=== PATIENT | female | born 1980 | race Caucasian/White ===

== ENCOUNTER 2017-06-06 12:32 | Day surgery (SDC) | payer MEDICARE, MEDICAID ==
[2017-06-06] MEDS ORDERED: Sodium Chloride 0.9% 20 ML ONE (12:43)
[2017-06-06] MEDS ORDERED: Cyclophosphamide 1 GM in Sodium Chloride 0.9% 250 ML 250 ML IVPB SCH ×4 (13:15)
[2017-06-06] MEDS ORDERED: Dexamethasone 10 MG in Sodium Chloride 0.9% 50 ML IVPB SCH (13:15)
[2017-06-06] MEDS ORDERED: Palonosetron HCl 0.25 MG in Sodium Chloride 0.9% 50 ML IVPB SCH (13:15)
[2017-06-06 15:26] VITALS: BP 123/70; TEMP 98.3
== END 2017-06-06 17:07 | disposition home or self-care (01) ==
LOC: ONC/OP 12:32
PROVIDERS: ATTEND Internal Medicine Hematology & Oncology
DX: G70.00 Myasthenia gravis without (acute) exacerbation (principal); D83.9 Common variable immunodeficiency, unspecified; G62.9 Polyneuropathy, unspecified; E66.9 Obesity, unspecified; F32.9 Major depressive disorder, single episode, unspecified; Z68.42 Body mass index [BMI] 45.0-49.9, adult; Z79.899 Other long term (current) drug therapy
CPT/HCPCS: 96367; 96413; A4216; J1100; J1642; J2469; J7050; J9070

== ENCOUNTER 2017-07-18 12:05 | Day surgery (SDC) | payer MEDICARE, MEDICAID ==
[2017-07-18] MEDS ORDERED: Cyclophosphamide 1 GM in Sodium Chloride 0.9% 250 ML 250 ML IVPB SCH (12:30)
[2017-07-18] MEDS ORDERED: Dexamethasone 10 MG in Sodium Chloride 0.9% 50 ML IVPB SCH (12:30)
[2017-07-18] MEDS ORDERED: Palonosetron HCl 0.25 MG in Sodium Chloride 0.9% 50 ML IVPB SCH (12:30)
[2017-07-18] MEDS ORDERED: Sodium Chloride 0.9% 20 ML ONE (12:44)
[2017-07-18 14:13] VITALS: BP 117/56; TEMP 98
[2017-07-18 15:23] LABS: #Eosinphils 0.1 thou/uL (0.0-0.7); #Lymphocytes 1.1 thou/uL (1.20-3.40); #Monocytes 0.4 thou/uL (0.11-0.59); #Neutrophils 6.7 thou/uL (1.40-6.50); %Basophils 0.4 % (0.0-1.0); %Eosinophils 1.1 % (0.0-10.0); %Lymphocytes 13.6 % (21.0-51.0); %Monocytes 4.9 % (0.0-10.0); Hematocrit 37.8 % (36.0-47.0); Mean Platelet Volume 6.8 fL (7.4-10.4); Red Blood Cell (RBC) Count 3.68 mill/uL (4.20-5.40); White Blood Cell (WBC) Count 8.3 thou/uL (4.8-10.8)
[2017-07-18 15:46] LABS: ALT (SGPT) 35 U/L (8-55); AST (SGOT) 23 U/L (5-34); Alkaline Phosphatase 53 U/L (40-150); Anion Gap 12 mmol/L (10-20); BUN (Urea Nitrogen) 22 mg/dL (7.0-18.7); Bilirubin, Total Less than 0.2 mg/dL (0.2-1.2); Calc. Creatinine Clearance 231 mL/min (70-130); Calcium 9.7 mg/dL (7.8-10.44); Carbon Dioxide 30 mmol/L (22-29); Chloride 105 mmol/L (98-107); Estimated GFR-MDRD Greater than 90; Globulin 3.1 g/dL (2.4-3.5); Uric Acid 4.8 mg/dL (2.6-6.0)
== END 2017-07-18 14:55 | disposition home or self-care (01) ==
LOC: ONC/OP 12:05
PROVIDERS: ATTEND Internal Medicine Hematology & Oncology
DX: G70.00 Myasthenia gravis without (acute) exacerbation (principal); G62.9 Polyneuropathy, unspecified; E66.9 Obesity, unspecified; K59.03 Drug induced constipation; T45.1X5A Adverse effect of antineoplastic and immunosuppressive drugs, initial encounter; F32.9 Major depressive disorder, single episode, unspecified; Z68.42 Body mass index [BMI] 45.0-49.9, adult
CPT/HCPCS: 36415; 80053; 84550; 85025; 96367; 96413; A4216; J1100; J1642; J2469; J7050; J9070

== ENCOUNTER 2017-09-02 14:29 | Day surgery (SDC) | payer MEDICARE, MEDICAID ==
[2017-09-02] MEDS ORDERED: Sodium Chloride 0.9% 30 ML ONE (14:38)
[2017-09-02] MEDS ORDERED: Palonosetron HCl 0.25 MG in Sodium Chloride 0.9% 50 ML IVPB SCH (14:45)
[2017-09-02] MEDS ORDERED: Dexamethasone 10 MG in Sodium Chloride 0.9% 50 ML IVPB SCH (14:45)
[2017-09-02] MEDS ORDERED: Cyclophosphamide 1 GM in Sodium Chloride 0.9% 250 ML 250 ML IVPB SCH (14:45)
[2017-09-02 14:57] VITALS: BP 133/63; TEMP 99.1
[2017-09-02 15:01] LABS: #Eosinphils 1.3 thou/uL (0.0-0.7); #Lymphocytes 1.9 thou/uL (1.20-3.40); #Monocytes 0.7 thou/uL (0.11-0.59); #Neutrophils 7.1 thou/uL (1.40-6.50); %Basophils 0.4 % (0.0-1.0); %Lymphocytes 17.2 % (21.0-51.0); %Monocytes 6.2 % (0.0-10.0); %Neutrophils 64.2 % (42.0-75.0); Hemoglobin 14.1 g/dL (12.0-16.0); Mean Corpuscular HGB CONC 33.9 g/dL (32.0-36.0); Mean Corpuscular Hemoglobin 33.8 pg (27.0-31.0); Mean Corpuscular Volume 99.7 fl (81.0-99.0); Mean Platelet Volume 6.8 fL (7.4-10.4); Platelet Count 394 thou/uL (130-400); RBC Distribution Width 12.8 % (11.5-14.5); Red Blood Cell (RBC) Count 4.16 mill/uL (4.20-5.40); White Blood Cell (WBC) Count 11.1 thou/uL (4.8-10.8)
[2017-09-02] MEDS: Activase 2 MG VIAL CATH SCH ×2 (15:15→17:06)
[2017-09-02 15:29] LABS: ALT (SGPT) 80 U/L (8-55); AST (SGOT) 65 U/L (5-34); Albumin 4.4 g/dL (3.5-5.0); Alkaline Phosphatase 63 U/L (40-150); Anion Gap 18 mmol/L (10-20); BUN (Urea Nitrogen) 14 mg/dL (7.0-18.7); Bilirubin, Total 0.4 mg/dL (0.2-1.2); Calc. Creatinine Clearance 228 mL/min (70-130); Calcium 9.4 mg/dL (7.8-10.44); Carbon Dioxide 20 mmol/L (22-29); Chloride 105 mmol/L (98-107); Estimated GFR-MDRD Greater than 90; Globulin 2.8 g/dL (2.4-3.5); Glucose 116 mg/dL (70-105); Protein, Total 7.2 g/dL (6.0-8.3); Sodium 139 mmol/L (136-145)
[2017-09-02] MEDS ORDERED: Sterile Water 10 ML VIAL IVP SCH (15:35)
== END 2017-09-02 18:58 | disposition home or self-care (01) ==
LOC: ONC/OP 14:29
PROVIDERS: ATTEND Internal Medicine Hematology & Oncology
DX: G70.00 Myasthenia gravis without (acute) exacerbation (principal); G62.9 Polyneuropathy, unspecified; E66.9 Obesity, unspecified; Z68.42 Body mass index [BMI] 45.0-49.9, adult
CPT/HCPCS: 80053; 84550; 85025; 96375; 96413; A4216; J1100; J1642; J2469; J2997; J7050; J9070

== ENCOUNTER 2017-09-04 11:34 | Emergency (ER) | payer MEDICARE, MEDICAID ==
[2017-09-04] MEDS ORDERED: Adacel (T-DAP) 0.5 ML VIAL ONE (12:02)
[2017-09-04] MEDS ORDERED: Ondansetron HCl/PF 4 MG/2 ML Vial ONE ×2 (12:02→13:12)
--- NOTE | 2017-09-04 12:12 | RAD ---
SINGLE VIEW CHEST: Date: 09/04/17 COMPARISON: 01/24/12. HISTORY: Syncope on toilet. Patient fell and hit head. FINDINGS: Single view of the chest shows normal sized cardiomediastinal silhouette. The patient is status post sternotomy. The MediPort is unchanged in position. There is no evidence of consolidation, mass, or pl eural effusion. IMPRESSION: No evidence of acute cardiopulmonary disease. POS: [facility]
--- NOTE | 2017-09-04 12:31 | CT ---
CT BRAIN WITHOUT CONTRAST: Comparison: None. History: Syncopal episode on the toilet, falling and hitting head. Loss of consciousness. Technique: Multiple contiguous axial images were obtained in a CT of the brain without contrast. FINDINGS: The brain is normal in morphology and attenuation without focal lesions or confluent areas of infarct ion. There is no evidence of hydrocephalus, intracranial hemorrhage, or extraaxial fluid collection. The calvarium and overlying soft tissues are unremarkable. The visualized paranasal sinuses and masto id air cells are well aerated. IMPRESSION: No evidence of acute intracranial abnormality. POS: [facility]
[2017-09-04 12:41] LABS: CKMB 0.8 ng/mL (0-6.6); Troponin I Less than 0.010 ng/mL (< 0.028)
[2017-09-04 12:42] LABS: ALT (SGPT) 56 U/L (8-55); AST (SGOT) 30 U/L (5-34); Albumin 4.2 g/dL (3.5-5.0); Alkaline Phosphatase 50 U/L (40-150); Anion Gap 19 mmol/L (10-20); BUN (Urea Nitrogen) 17 mg/dL (7.0-18.7); Bilirubin, Total 0.3 mg/dL (0.2-1.2); CK (CPK) 76 U/L (29-168); Calc. Creatinine Clearance 0 mL/min (70-130); Calcium 9.4 mg/dL (7.8-10.44); Carbon Dioxide 21 mmol/L (22-29); Chloride 104 mmol/L (98-107); Estimated GFR-MDRD Greater than 90; Globulin 2.9 g/dL (2.4-3.5); Glucose 94 mg/dL (70-105); Lipase 19 U/L (8-78); Protein, Total 7.1 g/dL (6.0-8.3); Sodium 140 mmol/L (136-145)
[2017-09-04] MEDS ORDERED: Acetaminophen 500 MG TAB ONE (12:55)
[2017-09-04 12:57] LABS: Band 27 % (5-11); Eosinophils 2 % (0-10); Hemoglobin 13.3 g/dL (12.0-16.0); Lymphocytes 23 % (21-51); MDiff Complete? YES; Mean Corpuscular HGB CONC 32.7 g/dL (32.0-36.0); Mean Corpuscular Hemoglobin 31.9 pg (27.0-31.0); Mean Corpuscular Volume 97.4 fl (81.0-99.0); Mean Platelet Volume 6.1 fL (7.4-10.4); Monocytes 8 % (0-10); PLT Morphology Comment Appears Adequate; Platelet Count 383 thou/uL (130-400); RBC Distribution Width 13.3 % (11.5-14.5); Red Blood Cell (RBC) Count 4.17 mill/uL (4.20-5.40); White Blood Cell (WBC) Count 16.7 thou/uL (4.8-10.8)
[2017-09-04 12:59] LABS: Neutrophil 39 % (42-75)
--- NOTE | 2017-09-04 14:28 | CT ---
CT ABDOMEN AND PELVIS WITHOUT IV CONTRAST: INDICATIONS: History of abdominal pain with nausea and vomiting. FINDINGS: The lack of IV contrast limits image detail of the solid organs of the abdomen and pelvis. The exam is compared to a prior, dated 08/28/2012. There is prominent fatty infiltration of the liver. The pancreas and adrenal glands are unremarkable . There is a small splenule seen adjacent to the superior pole of the spleen. The unopacified splee n is unremarkable. No renal or ureteral calculus is noted. A small amount of free fluid is present within the pelvis. There are scattered diverticula present involving the colon without evidence of a ctive diverticulitis. There is very subtle edematous change involving the mesentery of the right low er quadrant of the abdomen. No gino wall thickening is grossly evident. There is a normal appendix in the right lower quadrant. There is a small nodule involving the anterior aspect of the uterine body, measuring 1.6 cm, suspicio us for a subserosal fibroid that has developed in the interim. No definite acute osseous abnormality is evident. There is scattered degenerative and osteoarthritic change. IMPRESSION: 1. Subtle aaron appearance of the mesentery of the right lower quadrant of the abdomen, involving lo ops of small bowel within this location. The findings may reflect sequela of an enteritis. No drain able fluid collection is evident. A small amount of free fluid is present within the pelvis. 2. Fatty liver. 3. No renal or ureteral calculus. 4. Colonic diverticulosis. 5. Fibroid uterus. POS: [facility]
[2017-09-04 15:46] LABS: Amphetamine Detected (NotDetected)
[2017-09-04 15:47] LABS: Barbiturates Screen Not Detected (NotDetected); Benzodiazepine Screen Detected (NotDetected); Cocaine Metabolite Screen Not Detected (NotDetected); Medtox Control Line Valid? VALID (VALID); Methadone Not Detected (NotDetected); Methamphetamine Not Detected (NotDetected); Opiate Screen Not Detected (NotDetected); Oxycodone Screen Not Detected (NotDetected); Phencyclidine (PCP) Not Detected (NotDetected); THC/Cannabinoid Screen Not Detected (NotDetected); Tricyclic Screen Detected (NotDetected)
[2017-09-04 15:48] LABS: Bilirubin Small (Negative); Blood, Urine Negative (Negative); Clarity Cloudy (Clear); Glucose, Urine (Dipstick) Negative (Negative); Leukocyte Negative (Negative); Nitrite Negative (Negative); Protein, Urine (Dipstick) 30 mg/dL (Neg-Trace); Specific Gravity, Urine 1.025 (1.005-1.030); Urobilinogen 0.2 mg/dL (0.2-1.0)
[2017-09-04 15:51] LABS: Pregnancy Test - Urine (BHCG) Negative (Negative); Pregu Control Background? CLEAR/WHITE (CLR/WHITE); Pregu Control Bar Appear? YES (CONTROL BAR); Specific Gravity 1.025 (1.002-1.036)
[2017-09-04 15:53] LABS: RBC/HPF 0-3 HPF (0-3)
[2017-09-04 15:54] LABS: Bacteria/HPF 3+ HPF (None Seen); Hyaline Casts/LPF 0-3 HYALINE CAST LPF (0-3 Hyaline)
== END 2017-09-04 16:05 | disposition home or self-care (01) ==
LOC: SCSER 11:34
DX: S01.01XA Laceration without foreign body of scalp, initial encounter (principal); K52.9 Noninfective gastroenteritis and colitis, unspecified; E78.5 Hyperlipidemia, unspecified; F41.9 Anxiety disorder, unspecified; F32.9 Major depressive disorder, single episode, unspecified; Z79.4 Long term (current) use of insulin; Z79.899 Other long term (current) drug therapy; W22.8XXA Striking against or struck by other objects, initial encounter
CPT/HCPCS: 70450; 71045; 74176; 80053; 80306; 81003; 81015; 81025; 82550; 82553; 83690; 84484; 85025; 90715; 93005; J2405

== ENCOUNTER 2017-09-04 22:45 | Emergency (ER) | payer MEDICARE, MEDICAID ==
[2017-09-04] MEDS ORDERED: Ketorolac Tromethamine 30 MG/ML VIAL ONE (23:09)
== END 2017-09-04 23:20 | disposition home or self-care (01) ==
LOC: SCSER 22:45
DX: S00.03XA Contusion of scalp, initial encounter (principal); E78.5 Hyperlipidemia, unspecified; F41.9 Anxiety disorder, unspecified; F32.9 Major depressive disorder, single episode, unspecified; Z79.84 Long term (current) use of oral hypoglycemic drugs; Z79.899 Other long term (current) drug therapy; W22.8XXA Striking against or struck by other objects, initial encounter
CPT/HCPCS: 12001; 70450; 71045; 74176; 80053; 80306; 81003; 81015; 81025; 82550; 82553; 83690; 84484; 85025; 90471; 90715; 93005; 96361; 96372; 96374; 96376; J1885; J2405

== ENCOUNTER 2017-10-03 11:45 | Day surgery (SDC) | payer MEDICARE, MEDICAID ==
[2017-10-03] MEDS ORDERED: Sodium Chloride 0.9% 20 ML ONE (12:26)
[2017-10-03] MEDS ORDERED: PALONOSETRON HCL 0.05 MG/ML 5 ML VIAL IVP SCH (12:30)
[2017-10-03] MEDS ORDERED: Dexamethasone 4 mg/ml Vial SLOW IVP SCH (12:30)
[2017-10-03] MEDS ORDERED: Cyclophosphamide 1 GM in Sodium Chloride 0.9% 250 ML 250 ML IVPB SCH (13:00)
== END 2017-10-03 14:26 | disposition home or self-care (01) ==
LOC: ONC/OP 11:45
PROVIDERS: ATTEND Internal Medicine Hematology & Oncology
DX: Z51.11 Encounter for antineoplastic chemotherapy (principal); G70.00 Myasthenia gravis without (acute) exacerbation; G62.9 Polyneuropathy, unspecified; F32.9 Major depressive disorder, single episode, unspecified; Z79.899 Other long term (current) drug therapy
CPT/HCPCS: 96375; 96413; A4216; J1100; J1642; J2469; J7050; J9070

== ENCOUNTER 2017-11-17 14:35 | Day surgery (SDC) | payer MEDICARE, MEDICAID ==
[2017-11-17] MEDS ORDERED: PALONOSETRON HCL 0.05 MG/ML 5 ML VIAL IVP SCH (15:00)
[2017-11-17] MEDS ORDERED: Dexamethasone 4 mg/ml Vial SLOW IVP SCH (15:00)
[2017-11-17] MEDS ORDERED: Dexamethasone 10 MG/ML VIAL SLOW IVP SCH (15:15)
[2017-11-17] MEDS ORDERED: Cyclophosphamide 1 GM in Sodium Chloride 0.9% 250 ML 250 ML IVPB SCH (15:15)
[2017-11-17] MEDS ORDERED: Sodium Chloride 0.9% 40 ML ONE (15:32)
== END 2017-11-17 16:54 | disposition home or self-care (01) ==
LOC: ONC/OP 14:35
PROVIDERS: ATTEND Internal Medicine Hematology & Oncology
DX: Z51.11 Encounter for antineoplastic chemotherapy (principal); G70.00 Myasthenia gravis without (acute) exacerbation; G62.9 Polyneuropathy, unspecified; F32.9 Major depressive disorder, single episode, unspecified; E66.9 Obesity, unspecified; Z68.42 Body mass index [BMI] 45.0-49.9, adult; Z79.899 Other long term (current) drug therapy
CPT/HCPCS: 96375; 96413; A4216; J1100; J1642; J2469; J7050; J9070

== ENCOUNTER 2017-12-19 13:43 | Day surgery (SDC) | payer MEDICARE, MEDICAID ==
[2017-12-19] MEDS ORDERED: Cyclophosphamide 1 GM, Admixture Fee 1 EACH in Sodium Chloride 0.9% 250 ML 250 ML IVPB SCH (14:00)
[2017-12-19] MEDS ORDERED: PALONOSETRON HCL 0.05 MG/ML 5 ML VIAL IVP SCH (14:00)
[2017-12-19] MEDS ORDERED: Dexamethasone 10 MG/ML VIAL SLOW IVP SCH (14:00)
[2017-12-19] MEDS ORDERED: Sodium Chloride 0.9% 40 ML ONE (14:03)
[2017-12-19 15:00] VITALS: BP 111/74; TEMP 98.2
[2017-12-19 15:34] LABS: #Basophils 0.1 thou/uL (0.0-0.2); #Eosinphils 0.8 thou/uL (0.0-0.7); #Lymphocytes 1.7 thou/uL (1.20-3.40); #Monocytes 0.5 thou/uL (0.11-0.59); #Neutrophils 6.3 thou/uL (1.40-6.50); %Basophils 0.8 % (0.0-1.0); %Eosinophils 8.8 % (0.0-10.0); %Lymphocytes 18.3 % (21.0-51.0); %Monocytes 4.9 % (0.0-10.0); %Neutrophils 67.1 % (42.0-75.0); Mean Corpuscular HGB CONC 34.7 g/dL (32.0-36.0); Mean Corpuscular Volume 97.9 fl (81.0-99.0); Mean Platelet Volume 6.5 fL (7.4-10.4); Platelet Count 367 thou/uL (130-400); RBC Distribution Width 13.5 % (11.5-14.5); Red Blood Cell (RBC) Count 3.81 mill/uL (4.20-5.40); White Blood Cell (WBC) Count 9.4 thou/uL (4.8-10.8)
[2017-12-19 15:55] LABS: ALT (SGPT) 43 U/L (8-55); AST (SGOT) 29 U/L (5-34); Alkaline Phosphatase 52 U/L (40-150); Anion Gap 13 mmol/L (10-20); BUN (Urea Nitrogen) 14 mg/dL (7.0-18.7); Bilirubin, Total 0.3 mg/dL (0.2-1.2); Calc. Creatinine Clearance 221 mL/min (70-130); Calcium 9.5 mg/dL (7.8-10.44); Carbon Dioxide 25 mmol/L (22-29); Chloride 106 mmol/L (98-107); Estimated GFR-MDRD Greater than 90; Glucose 100 mg/dL (70-105); LDH 194 U/L (125-220); Potassium 3.9 mmol/L (3.5-5.1); Sodium 140 mmol/L (136-145); Uric Acid 5.8 mg/dL (2.6-6.0)
== END 2017-12-19 15:34 | disposition home or self-care (01) ==
LOC: ONC/OP 13:43
PROVIDERS: ATTEND Internal Medicine Hematology & Oncology
DX: G70.00 Myasthenia gravis without (acute) exacerbation (principal); D83.9 Common variable immunodeficiency, unspecified; G62.9 Polyneuropathy, unspecified; F32.9 Major depressive disorder, single episode, unspecified; E66.9 Obesity, unspecified; Z68.42 Body mass index [BMI] 45.0-49.9, adult; Z79.899 Other long term (current) drug therapy
CPT/HCPCS: 80053; 83615; 84550; 85025; 96376; 96413; A4216; J1100; J1642; J2469; J7050; J9070

== ENCOUNTER 2018-01-16 14:22 | Day surgery (SDC) | payer MEDICARE, MEDICAID ==
[2018-01-16] MEDS ORDERED: Sodium Chloride 0.9% 50 ML ONE (14:39)
[2018-01-16 15:15] LABS: #Eosinphils 0.8 thou/uL (0.0-0.7); #Lymphocytes 1.7 thou/uL (1.20-3.40); #Monocytes 0.7 thou/uL (0.11-0.59); #Neutrophils 4.9 thou/uL (1.40-6.50); %Basophils 0.4 % (0.0-1.0); %Eosinophils 9.6 % (0.0-10.0); %Lymphocytes 20.9 % (21.0-51.0); %Monocytes 8.1 % (0.0-10.0); Hemoglobin 12.3 g/dL (12.0-16.0); Mean Corpuscular HGB CONC 34.8 g/dL (32.0-36.0); Mean Corpuscular Hemoglobin 34.2 pg (27.0-31.0); Mean Corpuscular Volume 98.4 fl (81.0-99.0); Mean Platelet Volume 6.4 fL (7.4-10.4); Platelet Count 318 thou/uL (130-400); RBC Distribution Width 13.3 % (11.5-14.5); White Blood Cell (WBC) Count 8.1 thou/uL (4.8-10.8)
[2018-01-16] MEDS ORDERED: PALONOSETRON HCL 0.05 MG/ML 5 ML VIAL IVP SCH (15:30)
[2018-01-16] MEDS ORDERED: Dexamethasone 10 MG/ML VIAL SLOW IVP SCH (15:30)
[2018-01-16] MEDS ORDERED: Cyclophosphamide 1 GM, Admixture Fee 1 EACH in Sodium Chloride 0.9% 250 ML 250 ML IVPB SCH (15:30)
[2018-01-16 15:36] LABS: ALT (SGPT) 36 U/L (8-55); AST (SGOT) 25 U/L (5-34); Albumin 3.7 g/dL (3.5-5.0); Alkaline Phosphatase 58 U/L (40-150); Anion Gap 13 mmol/L (10-20); BUN (Urea Nitrogen) 14 mg/dL (7.0-18.7); Bilirubin, Total Less than 0.2 mg/dL (0.2-1.2); Calc. Creatinine Clearance 0 mL/min (70-130); Calcium 9.3 mg/dL (7.8-10.44); Carbon Dioxide 22 mmol/L (22-29); Chloride 107 mmol/L (98-107); Estimated GFR-MDRD Greater than 90; Globulin 3.1 g/dL (2.4-3.5); Glucose 95 mg/dL (70-105); LDH 153 U/L (125-220); Potassium 4.2 mmol/L (3.5-5.1); Protein, Total 6.8 g/dL (6.0-8.3); Sodium 138 mmol/L (136-145); Uric Acid 5.1 mg/dL (2.6-6.0)
[2018-01-16 15:42] VITALS: BP 115/56; TEMP 98.4
== END 2018-01-16 18:00 | disposition home or self-care (01) ==
LOC: ONC/OP 14:22
PROVIDERS: ATTEND Internal Medicine Hematology & Oncology
DX: G70.00 Myasthenia gravis without (acute) exacerbation (principal); F32.9 Major depressive disorder, single episode, unspecified; D83.9 Common variable immunodeficiency, unspecified
CPT/HCPCS: 36415; 80053; 83615; 84550; 85025; 96375; 96413; A4216; J1100; J1642; J2469; J7050; J9070

== ENCOUNTER 2018-02-13 14:17 | Day surgery (SDC) | payer MEDICARE, MEDICAID ==
[2018-02-13 14:58] VITALS: BP 126/63; TEMP 98.4
[2018-02-13] MEDS ORDERED: PALONOSETRON HCL 0.05 MG/ML 5 ML VIAL IVP SCH (15:00)
[2018-02-13] MEDS ORDERED: Cyclophosphamide 1 GM, Admixture Fee 1 EACH in Sodium Chloride 0.9% 250 ML 250 ML IVPB SCH (15:00)
[2018-02-13] MEDS ORDERED: Dexamethasone 10 MG/ML VIAL SLOW IVP SCH (15:00)
[2018-02-13 15:13] LABS: #Eosinphils 0.7 thou/uL (0.0-0.7); #Lymphocytes 1.8 thou/uL (1.20-3.40); #Monocytes 0.6 thou/uL (0.11-0.59); #Neutrophils 7.8 thou/uL (1.40-6.50); %Basophils 0.3 % (0.0-1.0); %Eosinophils 6.2 % (0.0-10.0); %Lymphocytes 16.4 % (21.0-51.0); %Monocytes 5.9 % (0.0-10.0); %Neutrophils 71.3 % (42.0-75.0); Hemoglobin 13.5 g/dL (12.0-16.0); Mean Corpuscular Hemoglobin 34.1 pg (27.0-31.0); Mean Corpuscular Volume 97.4 fL (78.0-98.0); Mean Platelet Volume 6.5 fL (7.4-10.4); Platelet Count 351 thou/uL (130-400); RBC Distribution Width 12.6 % (11.5-14.5); Red Blood Cell (RBC) Count 3.94 mill/uL (4.20-5.40); White Blood Cell (WBC) Count 10.9 thou/uL (4.8-10.8)
[2018-02-13 15:35] LABS: ALT (SGPT) 53 U/L (8-55); AST (SGOT) 38 U/L (5-34); Albumin 4.4 g/dL (3.5-5.0); Alkaline Phosphatase 59 U/L (40-150); Anion Gap 16 mmol/L (10-20); BUN (Urea Nitrogen) 15 mg/dL (7.0-18.7); Bilirubin, Total 0.2 mg/dL (0.2-1.2); Calc. Creatinine Clearance 215 mL/min (70-130); Calcium 10.1 mg/dL (7.8-10.44); Carbon Dioxide 21 mmol/L (22-29); Chloride 106 mmol/L (98-107); Estimated GFR-MDRD Greater than 90; Globulin 3.3 g/dL (2.4-3.5); Glucose 128 mg/dL (70-105); LDH 165 U/L (125-220); Potassium 3.9 mmol/L (3.5-5.1); Protein, Total 7.7 g/dL (6.0-8.3); Sodium 139 mmol/L (136-145); Uric Acid 5.7 mg/dL (2.6-6.0)
== END 2018-02-13 16:45 | disposition home or self-care (01) ==
LOC: ONC/OP 14:17
PROVIDERS: ATTEND Internal Medicine Hematology & Oncology
DX: G70.00 Myasthenia gravis without (acute) exacerbation (principal); D83.9 Common variable immunodeficiency, unspecified; R11.2 Nausea with vomiting, unspecified
CPT/HCPCS: 36415; 80053; 83615; 84550; 85025; 96375; 96413; J1100; J2469; J7050; J9070

== ENCOUNTER 2018-03-13 14:27 | Day surgery (SDC) | payer MEDICARE, MEDICAID ==
[2018-03-13] MEDS ORDERED: Cyclophosphamide 1 GM in Sodium Chloride 0.9% 250 ML 250 ML IVPB SCH (14:45)
[2018-03-13] MEDS ORDERED: Dexamethasone 10 MG/ML VIAL SLOW IVP SCH (14:45)
[2018-03-13] MEDS ORDERED: Sodium Chloride 0.9% 20 ML ONE (14:45)
[2018-03-13] MEDS ORDERED: PALONOSETRON HCL 0.05 MG/ML 5 ML VIAL IVP SCH (14:45)
[2018-03-13 15:04] LABS: #Eosinphils 0.6 thou/uL (0.0-0.7); #Lymphocytes 2.3 thou/uL (1.20-3.40); #Monocytes 0.6 thou/uL (0.11-0.59); #Neutrophils 3.6 thou/uL (1.40-6.50); %Basophils 0.6 % (0.0-1.0); %Eosinophils 8.6 % (0.0-10.0); %Lymphocytes 32.3 % (21.0-51.0); %Monocytes 8.7 % (0.0-10.0); %Neutrophils 49.9 % (42.0-75.0); Hemoglobin 13.4 g/dL (12.0-16.0); Mean Corpuscular HGB CONC 34.7 g/dL (32.0-36.0); Mean Corpuscular Hemoglobin 33.8 pg (27.0-31.0); Mean Corpuscular Volume 97.4 fL (78.0-98.0); Mean Platelet Volume 6.6 fL (7.4-10.4); Platelet Count 341 thou/uL (130-400); RBC Distribution Width 12.7 % (11.5-14.5); Red Blood Cell (RBC) Count 3.95 mill/uL (4.20-5.40); White Blood Cell (WBC) Count 7.1 thou/uL (4.8-10.8)
[2018-03-13 15:27] LABS: ALT (SGPT) 53 U/L (8-55); AST (SGOT) 35 U/L (5-34); Albumin 4.3 g/dL (3.5-5.0); Alkaline Phosphatase 66 U/L (40-150); Anion Gap 13 mmol/L (10-20); BUN (Urea Nitrogen) 14 mg/dL (7.0-18.7); Bilirubin, Total 0.2 mg/dL (0.2-1.2); Calc. Creatinine Clearance 209 mL/min (70-130); Calcium 9.8 mg/dL (7.8-10.44); Carbon Dioxide 25 mmol/L (22-29); Chloride 107 mmol/L (98-107); Estimated GFR-MDRD Greater than 90; Globulin 2.7 g/dL (2.4-3.5); Glucose 112 mg/dL (70-105); LDH 146 U/L (125-220); Potassium 4.1 mmol/L (3.5-5.1); Sodium 141 mmol/L (136-145); Uric Acid 5.4 mg/dL (2.6-6.0)
== END 2018-03-13 16:47 | disposition home or self-care (01) ==
LOC: ONC/OP 14:27
PROVIDERS: ATTEND Internal Medicine Hematology & Oncology
DX: G70.00 Myasthenia gravis without (acute) exacerbation (principal); D83.9 Common variable immunodeficiency, unspecified
CPT/HCPCS: 80053; 83615; 84550; 85025; 96375; 96413; A4216; J1100; J1642; J2469; J7050; J9070

== ENCOUNTER 2018-05-08 12:37 | Day surgery (SDC) | payer MEDICARE, MEDICAID ==
[2018-05-08] MEDS ORDERED: Sodium Chloride 0.9% 20 ML ONE (12:45)
[2018-05-08] MEDS ORDERED: Palonosetron HCl 0.25 MG in Sodium Chloride 0.9% 50 ML IVPB SCH (13:30)
[2018-05-08] MEDS ORDERED: Cyclophosphamide 1 GM in Sodium Chloride 0.9% 250 ML 250 ML IVPB SCH (13:30)
[2018-05-08] MEDS ORDERED: Dexamethasone 10 MG in Sodium Chloride 0.9% 50 ML IVPB SCH (13:30)
[2018-05-08 16:06] VITALS: BP 120/69; TEMP 98.1
== END 2018-05-08 16:12 | disposition home or self-care (01) ==
LOC: ONC/OP 12:37
PROVIDERS: ATTEND Internal Medicine Hematology & Oncology
DX: G70.00 Myasthenia gravis without (acute) exacerbation (principal); D83.9 Common variable immunodeficiency, unspecified; G62.9 Polyneuropathy, unspecified; E66.9 Obesity, unspecified; F32.9 Major depressive disorder, single episode, unspecified
CPT/HCPCS: 36415; 80053; 82248; 83615; 84100; 84550; 96375; 96413; A4216; J1100; J1642; J2469; J7050; J9070

== ENCOUNTER 2018-07-06 13:59 | Day surgery (SDC) | payer MEDICARE, MEDICAID ==
[2018-07-06] MEDS ORDERED: Sodium Chloride 0.9% 20 ML ONE (14:09)
[2018-07-06 14:22] VITALS: BP 127/65; TEMP 98.3
[2018-07-06] MEDS ORDERED: Acetaminophen 500 MG TAB PO PRN (14:37)
[2018-07-06] MEDS ORDERED: diphenhydrAMINE 50 MG in Sodium Chloride 0.9% 50 ML IVPB SCH (15:00)
[2018-07-06] MEDS ORDERED: PRIVIGEN IVPB SCH (15:30)
[2018-07-06] MEDS ORDERED: ADMIXTURE FEE IVPB SCH (15:30)
== END 2018-07-06 19:35 | disposition home or self-care (01) ==
LOC: ONC/OP 13:59
PROVIDERS: ATTEND Internal Medicine Hematology & Oncology
DX: G70.00 Myasthenia gravis without (acute) exacerbation (principal); D83.9 Common variable immunodeficiency, unspecified; E66.9 Obesity, unspecified; Z68.41 Body mass index [BMI] 40.0-44.9, adult; Z98.84 Bariatric surgery status
CPT/HCPCS: 96365; 96366; 96375; J1200; J1459; J1642; J7050

== ENCOUNTER 2018-07-07 14:21 | Day surgery (SDC) | payer MEDICARE, MEDICAID ==
[2018-07-07] MEDS ORDERED: Acetaminophen 500 MG TAB PO PRN (14:32)
[2018-07-07] MEDS ORDERED: diphenhydrAMINE 50 MG CAP PO SCH (14:45)
[2018-07-07] MEDS ORDERED: PRIVIGEN IVPB SCH (14:45)
[2018-07-07] MEDS ORDERED: Sodium Chloride 0.9% 20 ML ONE (14:46)
[2018-07-07 14:49] VITALS: TEMP 98.8
[2018-07-07 16:18] VITALS: BP 114/65
== END 2018-07-07 18:10 | disposition home or self-care (01) ==
LOC: ONC/OP 14:21
PROVIDERS: ATTEND Internal Medicine Hematology & Oncology
DX: G70.00 Myasthenia gravis without (acute) exacerbation (principal); D83.9 Common variable immunodeficiency, unspecified
CPT/HCPCS: 96365; 96366; J1459

== ENCOUNTER 2018-07-09 14:31 | Day surgery (SDC) | payer MEDICARE, MEDICAID ==
[2018-07-09] MEDS ORDERED: Sodium Chloride 0.9% 20 ML ONE (14:48)
[2018-07-09] MEDS ORDERED: ADMIXTURE FEE IVPB SCH (15:00)
[2018-07-09] MEDS ORDERED: PRIVIGEN IVPB SCH (15:00)
[2018-07-09] MEDS ORDERED: diphenhydrAMINE 50 MG in Sodium Chloride 0.9% 50 ML IVPB SCH (15:00)
[2018-07-09] MEDS ORDERED: Acetaminophen 500 MG TAB PO SCH (15:00)
[2018-07-09 15:24] VITALS: BP 105/66; TEMP 98.3
== END 2018-07-09 18:05 | disposition home or self-care (01) ==
LOC: ONC/OP 14:31
PROVIDERS: ATTEND Internal Medicine Hematology & Oncology
DX: G70.00 Myasthenia gravis without (acute) exacerbation (principal); D83.9 Common variable immunodeficiency, unspecified
CPT/HCPCS: 96365; 96366; J1200; J1459; J1642; J7050

== ENCOUNTER 2018-07-10 14:11 | Day surgery (SDC) | payer MEDICARE, MEDICAID ==
[2018-07-10] MEDS ORDERED: Sodium Chloride 0.9% 20 ML ONE (14:28)
[2018-07-10] MEDS ORDERED: diphenhydrAMINE 50 MG in Sodium Chloride 0.9% 50 ML IVPB SCH (14:30)
[2018-07-10] MEDS ORDERED: PRIVIGEN IVPB SCH (14:30)
[2018-07-10] MEDS ORDERED: ADMIXTURE FEE IVPB SCH (14:30)
[2018-07-10] MEDS ORDERED: Acetaminophen 500 MG TAB PO SCH (14:30)
[2018-07-10 16:37] VITALS: BP 117/56; TEMP 98.9
== END 2018-07-10 17:34 | disposition home or self-care (01) ==
LOC: ONC/OP 14:11
PROVIDERS: ATTEND Internal Medicine Hematology & Oncology
DX: G70.00 Myasthenia gravis without (acute) exacerbation (principal); D83.9 Common variable immunodeficiency, unspecified
CPT/HCPCS: 96365; 96366; J1200; J1459; J7050

== ENCOUNTER 2019-12-29 09:24 | Outpatient (CLI) | payer MEDICARE, MEDICAID ==
[2019-12-29 11:36] LABS: #Basophils 0.1 thou/uL (0.0-0.2); #Eosinphils 0.5 thou/uL (0.0-0.7); #Lymphocytes 2.6 thou/uL (1.20-3.40); #Monocytes 0.6 thou/uL (0.11-0.59); #Neutrophils 5.3 thou/uL (1.40-6.50); %Basophils 0.9 % (0.0-1.0); %Eosinophils 5.2 % (0.0-10.0); %Lymphocytes 28.6 % (21.0-51.0); %Monocytes 6.7 % (0.0-10.0); %Neutrophils 58.6 % (42.0-75.0); Hemoglobin 12.8 g/dL (12.0-16.0); Mean Corpuscular HGB CONC 32.3 g/dL (32.0-36.0); Mean Corpuscular Hemoglobin 31.7 pg (27.0-31.0); Mean Platelet Volume 7.4 fL (7.4-10.4); Platelet Count 369 thou/uL (130-400); RBC Distribution Width 12.7 % (11.5-14.5); Red Blood Cell (RBC) Count 4.03 mill/uL (4.20-5.40)
[2019-12-29 12:02] LABS: Hemoglobin A1c 5.4 % (4.0-6.0)
[2019-12-29 12:47] LABS: Free T4 (Free Thyroxine) 0.92 ng/dL (0.70-1.48)
[2019-12-29 12:48] LABS: Thyroid Stimulating Hormone 0.3913 uIU/mL (0.35-4.94)
[2019-12-29 12:50] LABS: HIV (1/2) Antibody/Antigen Non-Reactive (NonReactive); HIV 1/2 INDEX 0.06 S/CO (<1.00); Vitamin D, 25 Hydroxy 48.4 ng/ml (> 30.0)
[2019-12-29 12:54] LABS: Vitamin B12 540 pg/mL (211-911)
[2019-12-29 13:17] LABS: ALT (SGPT) 17 U/L (8-55); AST (SGOT) 14 U/L (5-34); Albumin 4.3 g/dL (3.5-5.0); Alkaline Phosphatase 65 U/L (40-110); Anion Gap 10 mmol/L (10-20); BUN (Urea Nitrogen) 28 mg/dL (7.0-18.7); Bilirubin, Total 0.6 mg/dL (0.2-1.2); Calc. Creatinine Clearance 0 mL/min (70-130); Calcium 9.6 mg/dL (7.8-10.44); Carbon Dioxide 31 mmol/L (22-29); Chloride 106 mmol/L (98-107); Estimated GFR-MDRD 90; Globulin 2.9 g/dL (2.4-3.5); Glucose 91 mg/dL (70-105); Potassium 4.4 mmol/L (3.5-5.1); Protein, Total 7.2 g/dL (6.0-8.3); Sodium 143 mmol/L (136-145)
--- NOTE | 2019-12-29 14:46 | RAD ---
LUMBAR SPINE THREE VIEWS: 12/29/19 INDICATION: 39-year-old female with dorsalgia. COMPARISON: Prior lumbar spinal radiographs dated 09/04/10. FINDINGS: There are five lumbar type vertebrae. Vertebral body heights are preserved. There are slightly more p ronounced marginal osteophytes involving the anterior margins of the lumbar vertebral bodies. Spinal alignment is preserved. No acute fracture is evident. There are small phleboliths within the lower le ft hip pelvis. IMPRESSION: Slight interval progression of mild disc degenerative disease of the lumbar spine. POS: [facility]
[2019-12-31 13:37] LABS: IgA - Total IgA (Sendout) 382 mg/dL (87-352); Immunoglobulin - G (Sendout) 978 mg/dL (586-1602); Immunoglobulin - M (Sendout) 64 mg/dL (26-217)
== END 2019-12-29 09:25 | disposition home or self-care (01) ==
LOC: SCSRAD 09:24
PROVIDERS: ATTEND Family Medicine
DX: M54.9 Dorsalgia, unspecified (principal); B35.4 Tinea corporis; G70.00 Myasthenia gravis without (acute) exacerbation; E53.8 Deficiency of other specified B group vitamins; E03.9 Hypothyroidism, unspecified; Z77.21 Contact with and (suspected) exposure to potentially hazardous body fluids; Z79.52 Long term (current) use of systemic steroids; M51.36 Other intervertebral disc degeneration, lumbar region
CPT/HCPCS: 36415; 72100; 80053; 82306; 82607; 82746; 83036; 84439; 84443; 84481; 85025; 86334; 87389

== ENCOUNTER 2020-11-01 07:29 | Emergency (ER) | payer MEDICARE, OTHER ==
[2020-11-01 08:32] LABS: Pregnancy Test - Urine (BHCG) Negative (Negative); Pregu Control Background? CLEAR/WHITE (CLR/WHITE); Pregu Control Bar Appear? YES (CONTROL BAR); Specific Gravity 1.023 (1.002-1.036)
[2020-11-01 08:49] LABS: Bilirubin Small (Negative); Blood, Urine Large (Negative); Glucose, Urine (Dipstick) Negative (Negative); Ketone, Urine Trace mg/dL (Negative); Leukocyte Moderate (Negative); Nitrite Negative (Negative); Protein, Urine (Dipstick) > or equal to 300 mg/dL (Neg-Trace); Urobilinogen 0.2 mg/dL (Less than 2)
[2020-11-01 08:51] LABS: Clarity Turbid (Clear); Specific Gravity, Urine 1.023 (1.002-1.036)
[2020-11-01 08:53] LABS: Bacteria/HPF 2+ HPF (None Seen); Squamous Epithelial 0-3 HPF (0-3); WBC/HPF Greater Than 50 HPF (0-3)
[2020-11-01] MEDS ORDERED: cefTRIAXone\\ROCEPHIN 1 GM VIAL ONE (10:21)
[2020-11-01] MEDS ORDERED: Ketorolac Tromethamine 30 MG/ML VIAL ONE (10:21)
[2020-11-01] MEDS ORDERED: Lidocaine 1% (PF) 30 ML VIAL ONE (10:21)
== END 2020-11-01 11:10 | disposition home or self-care (01) ==
LOC: ERS 07:29
DX: N39.0 Urinary tract infection, site not specified (principal); B37.2 Candidiasis of skin and nail; E78.5 Hyperlipidemia, unspecified; E78.00 Pure hypercholesterolemia, unspecified; Z79.899 Other long term (current) drug therapy
CPT/HCPCS: 81003; 81015; 81025; 87077; 87086; 87186; 96372; 99283; J0696; J1885; J2001